=== PATIENT | female | born 1995 | race Two or more races ===

== ENCOUNTER 2018-11-05 17:01 | Emergency (ER) | payer MEDICAID ==
[~2018-11-05] VITALS: Ht 162.6 cm; Wt 167.4 kg
[2018-11-05 17:29] VITALS: BP 99/45
== END 2018-11-05 19:00 | disposition left against medical advice (07) ==
LOC: ER 17:06
DX: T78.40XA Allergy, unspecified, initial encounter (principal); Z88.0 Allergy status to penicillin; X58.XXXA Exposure to other specified factors, initial encounter

== ENCOUNTER 2024-02-10 17:25 | Emergency (ER) | payer MEDICAID ==
[~2024-02-10] VITALS: Ht 157.5 cm; Wt 166.3 kg
[2024-02-10 18:44] VITALS: BP 127/77; PULSE 112; RESP 18; TEMP 97.4; O2SAT 96
== END 2024-02-10 21:51 | disposition home or self-care (01) ==
LOC: ER 17:25
DX: Z00.00 Encounter for general adult medical examination without abnormal findings (principal); Z45.2 Encounter for adjustment and management of vascular access device; Z88.0 Allergy status to penicillin
CPT/HCPCS: 71045